=== PATIENT | male | born 1990 ===

== ENCOUNTER 2017-12-09 15:46 | Emergency (ER) | payer MEDICARE, MEDICAID ==
[2017-12-09 17:27] LABS: ABS Basophils 0.1 10^3/ul (0-0.2); ABS Eosinophils 0.5 10^3/ul (0-0.6); ABS Lymphocytes 0.2 10^3/ul (1.0-4.8); ABS Monocytes 0.5 10^3/ul (0-0.8); ABS Neutrophils 9.4 10^3/ul (1.5-7.7); ABS Nucleated RBC 0 10^3/ul; Eosinophil % 4.7 % (0-6); Hematocrit 48 % (42-52); Hemoglobin 16.7 g/dl (14.0-18.0); Lymphocyte % 1.9 % (25-47); Mean Corpuscular HGB Conc 35 g/dl (31-36); Mean Corpuscular Hemoglobin 30 pg (27-31); Mean Corpuscular Volume 87 fL (80-94); Mean Platelet Volume 7.2 um3 (7.4-10.4); Nucleated Red Blood Cells % 0.3; Platelet Count 346 10^3/ul (150-450); Red Cell Distribution Width 14 % (10.5-15); White Blood Count 10.7 10^3/ul (3.5-10.8)
[2017-12-09 17:45] LABS: EGFR Non-African American 74.6 (>60)
--- NOTE | 2017-12-09 18:41 | ED ---
Luis Manuel Mueller Angela, scribed for Dennis Kellogg MD on 12/09/17 at 1652 . Psychiatric Complaint - HPI Summary HPI Summary: This pt is a 27 y/o male presenting to [facility] via EMS for depression for the past couple of months now. Pt reports the pt has been feeling sad recently. He states "I acted crazy" "I should keep my mouth shut" and the senior environmental practice leader got involved. Pt notes that he has been sleeping a lot more recently and has also lost some weight. He states he does not shower because it gives him MS flares. Denies SI or HI thoughts/plan. Pt lives with his mom at home in [place]. He has finished school but is not working any jobs. PMHx includes MS, bipolar disorder, asperger's, psoriasis. Pt is a current smoker. - History Of Current Complaint Chief Complaint: EDMentalHealth Time Seen by Provider: 12/09/17 16:02 Hx Obtained From: Patient Onset/Duration: Lasting Weeks, Still Present Timing: Weeks Severity Currently: Severe Character: Depressed Aggravating Factor(s): Nothing Alleviating Factor(s): Nothing Has Suicidal: Denies: Thoughts, With A Plan Has Homicidal: Denies: Thoughts, With A Plan - Allergies/Home Medications Allergies/Adverse Reactions: Allergies Allergy/AdvReac Type Severity Reaction Status Date / Time No Known Allergies Allergy Verified 12/09/17 16:11 Home Medications: Home Medications ALPRAZolam TAB* [Xanax TAB*] 0.5 - 1 mg PO TID PRN MDD 3 mg 12/09/17 [History Confirmed 12/09/17] ARIPiprazole TAB* [Abilify 15 MG TAB*] 30 mg PO DAILY 12/09/17 [History Confirmed 12/09/17] Venlafaxine ER (NF) [Effexor ER (NF)] 150 mg PO DAILY 12/09/17 [History Confirmed 12/09/17] busPIRone TAB* [Buspar TAB *] 15 mg PO BID 12/09/17 [History Confirmed 12/09/17] lamoTRIgine TAB(*) [LaMICtal TAB(*)] 200 mg PO DAILY 12/09/17 [History Confirmed 12/09/17] PMH/Surg Hx/FS Hx/Imm Hx Endocrine/Hematology History: Denies: Hx Diabetes Cardiovascular History: Denies: Hx Hypertension Neurological History: Reports: Hx Nerve Disease - MS Psychiatric History: Reports: Hx Autism - Asperger's, Hx Bipolar Disorder Denies: Hx Eating Disorder, Hx of Violent Episodes Against Others Infectious Disease History: No Infectious Disease History: Denies: Traveled Outside the [place] in Last 30 Days - Family History Family History: FHx: bipolar disorder - Social History Alcohol Use: Rare Substance Use Type: Reports: Marijuana Smoking Status (MU): Current Every Day Smoker Type: Cigarettes Have You Smoked in the Last Year: Yes Review of Systems Negative: Fever, Chills Eyes: Negative ENT: Negative Cardiovascular: Negative Positive: Depressed. Negative: Other - SI or HI thoughts/plan All Other Systems Reviewed And Are Negative: Yes Physical Exam - Summary Physical Exam Summary: Appearance: Disheveled, no pain distress Skin: warm, dry, psoriasis around his momin. Head/face: normal Eyes: EOMI, TAMMY ENT: normal Neck: supple, non-tender Respiratory: scattered wheezes, breath sounds present Cardiovascular: RRR, pulses symmetrical Abdomen: non-tender, soft. Abdomen is obese. Bowel: present Musculoskeletal: normal, strength/ROM intact Neuro: normal, sensory motor intact, A&Ox3 Triage Information Reviewed: Yes Vital Signs On Initial Exam: Initial Vitals Temp Pulse Resp BP Pulse Ox 98.7 F 89 16 144/94 99 12/09/17 16:09 12/09/17 16:09 12/09/17 16:09 12/09/17 16:09 12/09/17 16:09 Vital Signs Reviewed: Yes Diagnostics - Vital Signs Vital Signs Temp Pulse Resp BP Pulse Ox 12/09/17 16:09 98.7 F 89 16 144/94 99 - Laboratory Lab Results: Lab Results 12/09/17 12/09/17 Range/Units 17:21 17:21 WBC 10.7 (3.5-10.8) 10^3/ul RBC 5.60 H (4.00-5.40) 10^6/ul Hgb 16.7 (14.0-18.0) g/dl Hct 48 (42-52) % MCV 87 (80-94) fL MCH 30 (27-31) pg MCHC 35 (31-36) g/dl RDW 14 (10.5-15) % Plt Count 346 (150-450) 10^3/ul MPV 7.2 L (7.4-10.4) um3 Neut % (Auto) 88.0 H (38-83) % Lymph % (Auto) 1.9 L (25-47) % Sharp % (Auto) 4.8 (0-7) % Eos % (Auto) 4.7 (0-6) % Baso % (Auto) 0.6 (0-2) % Absolute Neuts (auto) 9.4 H (1.5-7.7) 10^3/ul Absolute Lymphs (auto) 0.2 L (1.0-4.8) 10^3/ul Absolute Monos (auto) 0.5 (0-0.8) 10^3/ul Absolute Eos (auto) 0.5 (0-0.6) 10^3/ul Absolute Basos (auto) 0.1 (0-0.2) 10^3/ul Absolute Nucleated RBC 0 10^3/ul Nucleated RBC % 0.3 Sodium 138 (135-145) mmol/L Potassium 3.8 (3.5-5.0) mmol/L Chloride 106 (101-111) mmol/L Carbon Dioxide 24 (22-32) mmol/L Anion Gap 8 (2-11) mmol/L BUN 4 L (6-24) mg/dL Creatinine 1.18 H (0.67-1.17) mg/dL Est GFR ( Amer) 90.3 (>60) Est GFR (Non-Af Amer) 74.6 (>60) BUN/Creatinine Ratio 3.4 L (8-20) Glucose 113 H (70-100) mg/dL Calcium 10.3 (8.6-10.3) mg/dL Total Bilirubin 0.50 (0.2-1.0) mg/dL AST 20 (13-39) U/L ALT 27 (7-52) U/L Alkaline Phosphatase 160 H (34-104) U/L Total Protein 7.5 (6.4-8.9) g/dL Albumin 4.5 (3.2-5.2) g/dL Globulin 3.0 (2-4) g/dL Albumin/Globulin Ratio 1.5 (1-3) TSH 1.87 (0.34-5.60) mcIU/mL Salicylates < 2.50 (<30) mg/dL Acetaminophen < 15 mcg/mL [place] 1.07 (0.6-1.2) mmol/L Serum Alcohol < 10 (<10) mg/dL Result Diagrams: 12/09/17 17:21 12/09/17 17:21 Lab Statement: Any lab studies that have been ordered have been reviewed, and results considered in the medical decision making process. Course/Dx - Course Course Of Treatment: Patient with a history of aspirin a syndrome and I polar depression presents with sadness. He has very stable here. Laboratories benign. Awaiting mental health evaluation. Signed out to Dr. Williamson. - Differential Dx/Clinical Impression Provider Diagnosis: Asperger's syndrome, Bipolar depression Discharge - Sign-Out/Discharge Documenting (check all that apply): Sign-Out Patient Signing out patient TO: Alesia Williamson - pending dispo, awaiting MHE - Discharge Plan Condition: Stable Referrals: Serafin Morales, [Primary Care Provider] - - Billing Disposition and Condition Condition: STABLE The documentation as recorded by the Luis Manuel dias Angela accurately reflects the service I personally performed and the decisions made by , Dennis Kellogg MD.
[2017-12-09 18:56] LABS: Urine Appearance Clear; Urine Blood Negative (Negative); Urine Color Colorless; Urine Ketones Negative (Negative); Urine Protein Negative (Negative); Urine Specific Gravity 1.001 (1.010-1.030); Urine Urobilinogen Negative (Negative)
[2017-12-09 20:00] VITALS: BP 119/103
--- NOTE | 2017-12-12 10:27 | ED ---
ITarun Tariq, scribed for Alesia Williamson MD on 12/09/17 at 2224 . Progress - Progress Note Progress Note: Sign-Out to Dr. Williamson via Dr. Kellogg - Consult/PCP Time Called: 17:15 Course/Dx - Course Course Of Treatment: Patient with a history of Asperger Bipolar depression presents with sadness. He has very stable here. Laboratories benign. Awaiting mental health evaluation. Signed out to Dr. Williamson. Patient cleared for discharge home by Psych. - Diagnoses Provider Diagnoses: Asperger's syndrome, Bipolar depression - Provider Notifications Discussed Care Of Patient With: [place] - Sent home Discharge - Sign-Out/Discharge Documenting (check all that apply): Discharge/Admit/Transfer - Discharge - Discharge Plan Condition: Stable Disposition: HOME Patient Education Materials: Bipolar Disorder (ED) Referrals: Serafin Morales DO [Primary Care Provider] - Additional Instructions: Per completion of a mental health evaluation, you are cleared for release and do not require inpatient psychiatric hospitalization at this time. Please go to nearest emergency room or call 911 if safety concerns arise or condition worsens. Important Phone Numbers: [facility] ph:[phone] Suicide Prevention and Crisis Services ph:[phone] [place] [facility] ph:[phone] ([phone]) [facility] ph:[phone] Alcoholics Anonymous ph:[phone] [facility] ph:[phone] [employer] ph:[phone] Recommendation: Take medications as prescribed. Follow up with [facility], call Tuesday to schedule an intake appointment: ([phone] - Billing Disposition and Condition Condition: STABLE Disposition: Home The documentation as recorded by the Tarun dias Tariq accurately reflects the service I personally performed and the decisions made by , Alesia Williamson MD.
== END 2017-12-09 20:03 | disposition home or self-care (01) ==
LOC: ED 15:46
DX: F84.5 Asperger's syndrome (principal); F32.9 Major depressive disorder, single episode, unspecified; G35 Multiple sclerosis; L40.9 Psoriasis, unspecified; F17.210 Nicotine dependence, cigarettes, uncomplicated
CPT/HCPCS: 36415; 80053; 80178; 80307; 80320; 80329; 81003; 84443; 85025; 99285; G0480